=== PATIENT | male | born 2000 | race Caucasian/White ===

== ENCOUNTER → 2020-07-30 | Outpatient (CLI) | payer OTHER ==
[2020-07-30 19:53] LABS: Basophils # (A) 0.06 X 10*3/uL (0.00-0.10); Basophils % (A) 0.7 %; Eosinophils # (A) 0.18 X 10*3/uL (0.04-0.35); Eosinophils % (A) 2.2 %; HCT 41.7 % (39.6-50.0); HGB 14.1 g/dL (13.0-17.0); Lymphocytes # (A) 2.17 X 10*3/uL (0.90-5.00); Lymphocytes % (A) 26.2 %; MCH 30.9 pg (27.0-32.0); MCHC 33.8 g/dL (32.0-37.0); MCV 91.2 fL (80.0-97.0); Monocytes # (A) 0.65 X 10*3/uL (0.20-1.00); Monocytes % (A) 7.8 %; Neutrophils # (A) 5.21 X 10*3/uL (1.80-7.70); Neutrophils % (A) 62.9 %; Platelet Count 311 X 10*3/uL (140-440); RBC 4.57 X 10*6/uL (4.40-5.60); RDW 12.9 % (11.5-14.5); WBC 8.29 X 10*3/uL (4.50-10.00)
[2020-07-31 00:09] LABS: Anion Gap 10.5 mmol/L (4.00-12.00); Calcium 10.5 mg/dL (8.7-10.3); Carbon Dioxide 28.5 mmol/L (21.6-31.8); Non-African American GFR(CKD) 107.9 (60.0-200.0)
== END | disposition home or self-care (01) ==
LOC: LABWHC1 12:58
PROVIDERS: ATTEND Family Medicine
DX: D72.829 Elevated white blood cell count, unspecified (principal); R19.7 Diarrhea, unspecified
CPT/HCPCS: 36415; 80048; 85025

== ENCOUNTER 2020-10-24 15:22 | Inpatient (IN) | payer BC, OTHER ==
[2020-10-24] MEDS ORDERED: NALOXONE 0.4 MG/ML 1 ML VIAL IV PRN (15:50)
[2020-10-24] MEDS ORDERED: LORazepam 2 MG/ML INJ IV PRN (15:50)
--- NOTE | 2020-10-24 15:50 | ED ---
Seizure HPI - General Chief Complaint: Seizure Stated Complaint: Seizures Time Seen by Provider: 10/24/20 15:25 Source: patient, family, EMS Mode of arrival: EMS Limitations: no limitations - History of Present Illness Initial Comments: iNkita is a previously healthy 20-year-old male sent to the ER today as a transfer from an outside hospital. Patient was taken to the outside hospital after having a witnessed tonic-clonic seizure at home. While in the outside hospital patient a second tonic-clonic seizure. Workup at outside hospitals negative including head CT and lab work. Urinalysis and urine drug screen were not obtained. Patient did receive benzodiazepines and Keppra for his second seizure. Patient has no history of seizures in the past. He was admitted a couple of months ago for altered mental status and underwent a thorough workup including lumbar puncture with no acute findings, mom states in hindsight she thinks that his altered mental status was a postictal state. - Related Data Allergies Allergy/AdvReac Type Severity Reaction Status Date / Time No Known Allergies Allergy Verified 10/24/20 15:40 Review of Systems ROS Statement: Those systems with pertinent positive or pertinent negative responses have been documented in the HPI. ROS Other: All systems not noted in ROS Statement are negative. Past Medical History Additional Past Medical History / Comment(s): back pain, seizures History of Any Multi-Drug Resistant Organisms: None Reported Past Surgical History: No Surgical Hx Reported Past Psychological History: ADD/ADHD Smoking Status: Vaper Past Alcohol Use History: Occasional Past Drug Use History: Marijuana General Exam - General Exam Comments Initial Comments: Physical Exam GENERAL: Patient is well-developed and well-nourished. Patient is nontoxic and well-hydrated and is in no distress. HENT: Normocephalic, Atraumatic. EYES: PERRL, EOMI PULMONARY: Unlabored respirations. CARDIOVASCULAR: RRR Warm and well perfused extremities ABDOMEN: Non-distended SKIN: No rashes or bruising : Deferred NEUROLOGIC: Tired Confused but following commands MUSCULOSKELETAL: Moving all extremities with no apparent injury PSYCHIATRIC: Unable to assess Limitations: no limitations Course Vital Signs 10/24/20 15:31 Temperature 96.5 F L Pulse Rate 100 Respiratory 18 Rate Blood Pressure 107/48 O2 Sat by Pulse 98 Oximetry Medical Decision Making - Medical Decision Making She care was discussed with transferring physician patient has received Ativan and Keppra on for new onset seizure Patient arrived he appears to be postictal somewhat confused but does follow commands Patient care was discussed with Dr. soler of [facility] who accepts the admission with a consult to neurology Disposition Clinical Impression: New onset seizure Disposition: ADMITTED IP TO THIS HOSP Condition: Serious Instructions (If sedation given, give patient instructions): Seizure/Epilepsy D ischarge Instructions & Follow-Up Is patient prescribed a controlled substance at d/c from ED?: No Referrals: Flo Gu DO [Primary Care Provider] - 1-2 days
[2020-10-24] MEDS: SODIUM CHLORIDE 0.9% 1,000 ML IV SCH (17:56)
[2020-10-25] MEDS: SODIUM CHLORIDE 0.9% 1,000 ML IV SCH (10:48)
[2020-10-25 12:12] LABS: Amphetamine Screen,Urine Not Detected (NotDetected); Barbiturate Screen,Urine Not Detected (NotDetected); Benzodiazepines Screen,Urine Not Detected (NotDetected); Cocaine Screen,Urine Not Detected (NotDetected); Methadone Screen, Urine Not Detected (NotDetected); Opiate Screen,Urine Not Detected (NotDetected); Oxycodone Screen, Urine Not Detected (NotDetected); Phencyclidine Screen,Urine Not Detected (NotDetected); Tricyclic Antidepressant,Urine Not Detected (NotDetected); Urn Cannabinoid Scrn Detected (NotDetected)
--- NOTE | 2020-10-25 18:14 | EEG ---
ELECTROENCEPHALOGRAM REPORT DATE OF SERVICE: 10/25/2020 PREAMBLE: This is a 20-year-old male with new onset seizure. This study is performed to evaluate for any epileptiform activity. EEG FINDINGS: This is a 21 channel EEG recording in a patient utilizing 10/20 international system with referential and bipolar montages. Background consists of well-developed, but somewhat disorganized background with mixed frequencies of 9 hertz alpha mixed with some theta and some delta activity. The background is reactive to eye opening and closing. Photic driving response was not seen. Stage 2 sleep was attained with presence of vertex waves, sleep spindles, and K complexes. Hyperventilation revealed a good driving response. No definitive focal or generalized epileptiform activity was seen. IMPRESSION: This is a mildly abnormal EEG due to background disorganization with mild slowing. This is suggestive of generalized cerebral dysfunction as can be seen with toxic metabolic encephalopathy or medication effect. No definitive epileptiform activity was seen. If your suspicion for seizures is high, suggest prolonged, sleep-deprived EEG. MMODL / IJN: [id number] /
--- NOTE | 2020-10-25 20:46 | P.HPIM ---
History of Present Illness H&P Date: 10/25/20 Chief Complaint: witnessed seizures History of presenting complaint: This is a pleasant 20-year-old patient of Dr. Gu. Normally in good health. Patient had gone camping with family. Patient does not recall the events but he was told that his friend came on and called his parents S patient was actively seizing. Then patient became lethargic after that. No lifting patient remembers is when EMS was there. There is no tongue biting and incontinence. A few months ago there was an episode patient had felt rather weird and was negative without clothes in the house. And could not explain himself. This was witnessed by the mother. Patient denies any history of head injury. No immediate family members have any seizure activity. Denies any use of drugs except for some marijuana. This morning the patient is able to give me history. Neurology was consulted. Review of systems: GEN.: Tired EYES: None HEENT: None NECK: None RESPIRATORY: None CARDIOVASCULAR: None GASTROINTESTINAL: None GENITOURINARY: None MUSCULOSKELETAL: None LYMPHATICS: None HEMATOLOGICAL: None PSYCHIATRY: None NEUROLOGICAL: As above Social history: . Lives with his parents. Does some vaping and does some marijuana. Past medical history to include: ADHD Physical examination: VITAL SIGNS: 98.5, 73, 20, 102/40, 97% on room air GENERAL:. BMI 16.7, laying in bed, awake. EYES: Pupils equal. Conjunctiva normal. HEENT: External appearance of nose and ears normal, oral cavity grossly normal. NECK: JVD not raised; masses not palpable. HEART: First and second heart sounds are normal; no edema. LUNGS: Respiratory rate normal; clear to auscultation. ABDOMEN: Soft, nontender, liver spleen not palpable, no masses palpable. PSYCH: Alert and oriented x3; mood and affect normal. NEUROLOGICAL: Cranial nerves grossly intact; no facial asymmetry, power and sensation grossly intact. LYMPHATICS: No lymph nodes palpable in the axilla and neck INVESTIGATIONS, reviewed in the clinical context: Urine drug screen positive for marijuana Coronavirus [PCR]-not detected Assessment and plan: -This is a patient presents with witnessed tonic-clonic seizure. He had a post ictal... Episode. Patient claims to have a episode Cardenas felt just off. And was without his clothes off at home not realizing what is happening. Unclear that was a seizure activity 2. EEG. Consult neurology. Neurochecks -Recreational marijuana use Discussed with the patient. EEG. Neurology consulted. Neuro checks. Antiepileptic drugs as decided by neurology. Past Medical History Additional Past Medical History / Comment(s): back pain, new onset seizures 10/24/20 History of Any Multi-Drug Resistant Organisms: None Reported Past Surgical History: No Surgical Hx Reported Past Psychological History: ADD/ADHD Smoking Status: Vaper Past Alcohol Use History: Occasional Past Drug Use History: Marijuana - Past Family History Mother Family Medical History: Hyperlipidemia Additional Family Medical History / Comment(s): anxiety depression Father Additional Family Medical History / Comment(s): diverticulosis Medications and Allergies Home Medications Medication Instructions Recorded Confirmed Type No Known Home Medications 10/24/20 10/24/20 History Allergies Allergy/AdvReac Type Severity Reaction Status Date / Time No Known Allergies Allergy Verified 10/24/20 16:35 Physical Exam Vitals: Vital Signs Temp Pulse Pulse Resp BP BP Pulse Ox 10/25/20 05:00 98.5 F 73 20 102/40 97 10/24/20 20:49 98.4 F 93 15 114/61 94 L 10/24/20 17:38 98.8 F 73 16 97/52 100 10/24/20 15:31 96.5 F L 100 18 107/48 98 Intake and Output 10/24/20 10/25/20 10/25/20 22:59 06:59 14:59 Intake Total 600 Balance 600 Intake: Intake, IV Titration 600 Amount Sodium Chloride 0.9% 1, 600 000 ml @ 75 mls/hr IV . [id number] [facility] Rx#:[id number] Other: Voiding Method Toilet # Voids 1 # Bowel Movements 1 Weight 49.895 kg Thrombosis Risk Factor Assmnt - Choose All That Apply Any of the Below Risk Factors Present?: No
[2020-10-25 21:53] VITALS: RESP 16
--- NOTE | 2020-10-25 23:52 | P.CNNES ---
History of Present Illness Consult date: 10/25/20 Requesting physician: Lisa Snyder Reason for Consult: New onset seizure History of Present Illness: This is a Tele-neurology consultation performed on 10/25/2020. Patient is a 20-year-old male came to the hospital by ambulance as a transfer from [facility] yesterday at 3:31 PM for new onset seizure. Patient states that yesterday he had a seizure in the morning apparently while he was asleep. Patient was at [facility] in [place] with his family. He remembers going to sleep at 1 AM. And the next thing he woke up is in the hospital. Patient did not bite his tongue, or lost control of urine. He was taken to [facility]. Patient underwent computed tomography scan of the head which was normal. Patient's CBC with differential was normal, basic metabolic normal. Calcium was slightly decreased 8.2. LFTs normal, TSH normal, magnesium 2.0. CBC is normal with WBC 5.8. Troponin negative. Urine drug screen was not performed. Patient had a seizure lasting 2-3 minutes while [facility] as well. Patient was given 1 mg Ativan for seizures. Patient complained of a headache and was given Toradol 30 mg. Patient was given Keppra 500 mg prior to arrival. For neurological evaluation patient was transferred to [facility]. Patient's vitals during transport was blood pressure 111/56 pulse rate 60 and respirations 16 and saturation 96%. Patient's vitals on arrival blood pressure 107/48, pulse rate 100 temperature 96.5. Salgado virus PCR negative. Patient states that in June 2020 he had an episode, when he woke up and he was in a daze. He could see, but was not aware of what was going on. He wanted to go to the bathroom but his roommate was inside. He started banging, not knowing what was going on. His mother came over and at that point he realized that he was without closed and he came to reality. About a month ago he had another event when he passed out, came out of it quickly, but then he slept for rest of the day and woke up finally at 8-9 PM. He declined to go to the hospital at that time. Patient states that he smokes marijuana every day, also vapes everyday. He sometimes uses cigar with his dad. He does not drink any alcohol. He has history of ADHD, tried medications in the past but nothing right now. He denies any family history of epilepsy or personal history of seizure ever in his life. He denies any history of major concussion. He did have cracked open his scalp once when he was young, requiring 3 anuj but did not have any concussion or lost consciousness. Review of Systems Completely unremarkable at this time. Denies any chest pain shortness of breath wheezing or cough. All 14 point of review systems reviewed and noncontributory. Past Medical History Additional Past Medical History / Comment(s): back pain, new onset seizures 10/24/20 History of Any Multi-Drug Resistant Organisms: None Reported Past Surgical History: No Surgical Hx Reported Past Psychological History: ADD/ADHD Smoking Status: Vaper Past Alcohol Use History: Occasional Past Drug Use History: Marijuana - Past Family History Mother Family Medical History: Hyperlipidemia Additional Family Medical History / Comment(s): anxiety depression Father Additional Family Medical History / Comment(s): diverticulosis Medications and Allergies Home Medications Medication Instructions Recorded Confirmed Type No Known Home Medications 10/24/20 10/24/20 History Allergies Allergy/AdvReac Type Severity Reaction Status Date / Time No Known Allergies Allergy Verified 10/24/20 16:35 Physical Examination - Vital Signs Vital Signs: Vital Signs Temp Pulse Pulse Resp BP BP Pulse Ox 10/25/20 05:00 98.5 F 73 20 102/40 97 10/24/20 20:49 98.4 F 93 15 114/61 94 L 10/24/20 17:38 98.8 F 73 16 97/52 100 10/24/20 15:31 96.5 F L 100 18 107/48 98 Intake and Output 10/24/20 10/25/20 10/25/20 22:59 06:59 14:59 Intake Total 600 Balance 600 Intake: Intake, IV Titration 600 Amount Sodium Chloride 0.9% 1, 600 000 ml @ 75 mls/hr IV . [id number] [facility] Rx#:[id number] Other: Voiding Method Toilet # Voids 1 # Bowel Movements 1 Weight 49.895 kg Patient is is a young male, very pleasant, in no acute distress. Patient is alert awake oriented to time place and person. Speech and language functions are normal. Attention, concentration and fund of knowledge is adequate. On cranial examination, pupils are equal, round and reacting to light, visual peterson are full on confrontation, extraocular muscles are intact with no nystagmus. Face is symmetric, tongue protrudes to the midline. Palatal elevation and sensation normal, hearing and shoulder shrug normal, facial sensation normal. Shoulder shrug normal. No evidence of tongue bite kena. On muscle strength testing, there is no pronator drift and the strength is normal in arms and legs distally and proximally. Deep tendon reflexes are symmetric, 1+ to 2+ all over and plantars downgoing. Sensory to touch is equal with no neglect. Cerebellar function showed no ataxia for [id number]-kr-wehb testing. No dysdiadochokinesia. Tone and bulk of muscles normal. Gait normal. On general examination, there is no carotid bruit or murmur, S1-S2 audible. Abdomen is soft nontender. Chest is clear. Peripheral pulses are present. No edema. Assessment and Plan Assessment: * New onset seizure, unclear etiology. Patient had 2 other spells in the past few months, which also raises suspicion for partial seizures. * Marijuana use. Plan: * Patient underwent stat EEG, which was mildly abnormal due to background disorganization with mild slowing. This is suggestive of mild generalized cerebral dysfunction as can be seen with toxic metabolic encephalopathy or medication effect. No epileptiform activity was seen. * Patient may benefit from prolonged EEG or 24-hour's ambulatory EEG for further evaluation of any interictal epileptiform activity. * MRI of the brain with and without contrast to rule out any structural abnormality. * Urine drug screen positive for marijuana. * Patient will be empirically started on Keppra 500 mg twice a day. * Patient was informed of [place] state law of no driving unless seizure free for 6 months, climbing ladders, operating dangerous machinery or unsupervised swimming. * Dr. Messi Zhao Will resume neurology service in the morning.
[2020-10-26] MEDS: SODIUM CHLORIDE 0.9% 1,000 ML IV SCH ×2 (00:46→08:21)
[2020-10-26] MEDS: levETIRAcetam 500 MG TAB PO SCH ×2 (00:48→08:19)
--- NOTE | 2020-10-26 08:03 | MR ---
EXAMINATION TYPE: MR brain wo/w con DATE OF EXAM: 10/26/2020 COMPARISON: Outside CT brain 2 days ago. HISTORY: New onset of Seizure like activity TECHNIQUE: Multiplanar, multisequence images of the brain and brainstem is performed without and with IV contras t, utilizing 5 mL intravenous Gadavist . FINDINGS: Diffusion weighted images demonstrate no evidence of a recent infarct or other diffusion ab normality. There is no extra-axial fluid collection or significant white matter signal abnormality. The ventricular system and cisternal spaces are normal in size and appearance. The brain volume is age appropriate. T2 coronal weighted images show hippocampal gyri to appear symmetric and felt within normal limits. Midline structures demonstrate normal morphology. The craniocervical junction appears within normal limits. Post contrast images demonstrate no abnormal enhancement. The dural venous sinuses appear pa tent. The visualized sinuses are clear and the globes are intact. IMPRESSION: Unremarkable study
[2020-10-26 11:42] VITALS: BP 115/65; PULSE 62; TEMP 98.2
--- NOTE | 2020-10-26 12:13 | P.PN ---
Subjective Progress Note Date: 10/26/20 I'm seeing the patient for the first time. Please refer to Dr. Turcios's note for detailed neurological history and work-up. MRI of the brain w/ and w/o is reported as unremarkable study. EEG on 10/25/2020 is reported as mildly abnormal EEG due to background disorganization with mild slowing. This is suggestive of generalized cerebral dysfunction as can be seen with toxic metabolic encephalopathy or medication effect. No definite epileptiform activity was seen. If you're suspicion for seizure is high, suggest prolonged, sleep deprived EEG. Objective - Vital Signs Vital signs: Vital Signs Temp 98.2 F 10/26/20 11:29 Pulse 62 10/26/20 11:29 Resp 16 10/26/20 11:29 BP 115/65 10/26/20 11:29 Pulse Ox 99 10/26/20 11:29 Intake & Output 10/25/20 10/26/20 10/26/20 18:59 06:59 18:59 Intake Total 580 Balance 580 Intake: Oral 580 Other: Voiding Method Toilet Toilet Toilet # Voids 2 - Exam GENERAL: The patient is lying in bed and is not in acute distress. NEUROLOGICAL: Higher mental function: The patient is awake, alert, oriented to self, place and time. Patient is following commands. No aphasia and no neglect. Cranial nerves: The pupils are round, equal and reactive to light and accommodation. Visual peterson are full to confrontation throughout. Extraocular movement is intact no nystagmus is noted. Facial sensation is normal to touch throughout. The facial strength is normal throughout. Hearing is normal bilaterally to hand rub. Tongue is midline and moved [id number] without any difficulty. No dysarthria is noted. Shoulder shrug is normal bilaterally. Motor: The strength is 5 over 5 throughout. Normal tone and bulk. Cerebellum: Normal finger to nose bilaterally. Sensation: Sensation is normal to touch throughout. Reflexes (right/left): 2+ throughout. Plantars are downgoing bilaterally. - Labs Labs: Abnormal Lab Results - Last 24 Hours (Table) 10/25/20 Range/Units 11:45 U Marijuana (THC) Screen Detected H (NotDetected) Assessment and Plan Assessment: * New onset seizure, unclear etiology. Patient had 2 other spells in the past few months, which also raises suspicion for partial seizures that is suspected. * Marijuana use. Plan: * Patient underwent stat EEG on 10/25/2020: which was reported as mildly abnormal due to background disorganization with mild slowing. This is suggestive of mild generalized cerebral dysfunction as can be seen with toxic metabolic encephalopathy or medication effect. No epileptiform activity was seen. * Patient may benefit from prolonged EEG or 24-hour's ambulatory EEG for further evaluation of any interictal epileptiform activity as outpatient. * MRI of the brain w/ and w/o is reported as unremarkable study. * Urine drug screen positive for marijuana. * Continue Keppra 500 mg twice a day. * Recommend prolonged sleep deprived EEG as outpatient. * Patient was informed of [place] state law of no driving unless seizure free for 6 months, climbing ladders, operating dangerous machinery or unsupervised swimming. * Patient needs to follow-up with Dr. Terrence Alves as outpatient ([address] [place] [address], ) within 1-2 weeks for further epilepsy management. The plan is discussed with the patient and his mother who is at bedside. There is no further neurological work-up needed. Messi Zhao MD Neuro-Hospitalist Time with Patient: Less than 30
[2020-10-26 13:41] VITALS: BMI 16.7
--- NOTE | 2020-10-26 19:48 | P.DS ---
Providers Date of admission: 10/24/20 16:05 Expected date of discharge: 10/26/20 Attending physician: Wai Gomes Consults: 10/24/20 15:50 Consult Physician Urgent Consulting Provider: Andra Turcios Consult Reason/Comments: new onset seizure Do you want consulting provider notified?: Yes Primary care physician: [facility] Course: Chief Complaint: witnessed seizures History of presenting complaint: This is a pleasant 20-year-old patient of Dr. Gu. Normally in good health. Patient had gone camping with family. Patient does not recall the events but he was told that his friend came on and called his parents S patient was actively seizing. Then patient became lethargic after that. No lifting patient remembers is when EMS was there. There is no tongue biting and incontinence. A few months ago there was an episode patient had felt rather weird and was negative without clothes in the house. And could not explain himself. This was witnessed by the mother. Patient denies any history of head injury. No immediate family members have any seizure activity. Denies any use of drugs except for some marijuana. This morning the patient is able to give me history. Neurology was consulted. Admitted with a diagnosis of epilepsy. EEG showed some abnormality with no seizure activity. He may need a prolonged EEG as an outpatient. Today: No further seizure activity. Started on Keppra. Cleared by neurology. Discharge. Advised no driving until further notice and seizure precautions. Follow-up with neurology. Consultation: Neurology Social history: . Lives with his parents. Does some vaping and does some marijuana. Past medical history to include: ADHD Physical examination: VITAL SIGNS: 98.2, 62, 16, 115/65, 99% room air GENERAL:. BMI 16.7, sitting up, comfortable EYES: Pupils equal. Conjunctiva normal. HEENT: External appearance of nose and ears normal, oral cavity grossly normal. NECK: JVD not raised; masses not palpable. HEART: First and second heart sounds are normal; no edema. LUNGS: Respiratory rate normal; clear to auscultation. ABDOMEN: Soft, nontender, liver spleen not palpable, no masses palpable. PSYCH: Alert and oriented x3; mood and affect normal. INVESTIGATIONS, reviewed in the clinical context: EEG: Background disorganization with mild slowing. No definite epileptiform activity seen. MRI brain: Unremarkable Urine drug screen positive for marijuana Coronavirus [PCR]-not detected Assessment and plan: -witnessed tonic-clonic seizure. Started on Keppra. Follow up with neurology. Seizure precautions including no driving -Recreational marijuana use Disposition: Home Plan - Discharge Summary Discharge Rx Participant: No New Discharge Prescriptions: New levETIRAcetam [Keppra] 500 mg PO Q12HR #60 tab Discharge Medication List levETIRAcetam [Keppra] 500 mg PO Q12HR #60 tab 10/26/20 [Rx] Follow up Appointment(s)/Referral(s): Olinda Mckeon MD [REFERRING] - 2 Weeks Flo Gu DO [Primary Care Provider] - 1-2 days (Patient needs to make an appointment after discharge.) Patient Instructions/Handouts: Seizure/Epilepsy Discharge Instructions & Follow-Up Activity/Diet/Wound Care/Special Instructions: seizure precautions and no driving till further notice Discharge Disposition: HOME SELF-CARE
== END 2020-10-26 15:36 | disposition home or self-care (01) | DRG 101 ==
LOC: EC 15:22 → 5NMEDONC 16:05
PROVIDERS: ADMIT Hospitalist; ATTEND Hospitalist
DX: G40.409 Other generalized epilepsy and epileptic syndromes, not intractable, without status epilepticus (principal); F17.290 Nicotine dependence, other tobacco product, uncomplicated; Z20.822 Contact with and (suspected) exposure to COVID-19; F90.9 Attention-deficit hyperactivity disorder, unspecified type; M54.9 Dorsalgia, unspecified; Z83.49 Family history of other endocrine, nutritional and metabolic diseases; Z81.8 Family history of other mental and behavioral disorders; Z83.79 Family history of other diseases of the digestive system; Z81.2 Family history of tobacco abuse and dependence
CPT/HCPCS: 70553; 80306; 87635; 95819; 99285